=== PATIENT | male | born 1955 | race Caucasian/White ===

== ENCOUNTER 2016-08-09 17:00 | Inpatient (IN) | payer MEDICAID ==
[~2016-08-09] VITALS: Ht 180.3 cm; Wt 79.1 kg
--- NOTE | ~2016-08-09 | OR ---
PATIENT'S NAME: ALBERTO LEVI [facility] AGE: 61 Y [address] ROOM: [address] [address] LOCATION: [facility] [place] ADMIT DATE: 08/09/2016 OR/Procedure Report DISCHARGE DATE: FAMILY PHYSICIAN: JAMES LAI PA-C ATTENDING PHYSICIAN: Reilly Ayers SURGEON: Reilly Ayers MD PATROL INSPECTOR: DATE OF PROCEDURE: 08/10/2016 PREOPERATIVE DIAGNOSIS: Pathologic nondisplaced intertrochanteric fracture, left hip. POSTOPERATIVE DIAGNOSIS: Pathologic nondisplaced intertrochanteric fracture, left hip. ANESTHESIA: General ET tube. INDICATIONS: This is a 61-year-old male with a stage IV metastatic prostatic cancer who was walking his dog yesterday and then the dog ran in front of him and tangled him up in the dog leash and he fell, sustaining a nondisplaced fracture of his left femur. The patient is from [place]. DESCRIPTION OF PROCEDURE: The patient was brought to the operating room when a satisfactory general anesthesia had been established, and then he was transferred to the fracture table. The left lower extremity was prepped and draped in an aseptic manner. The fracture was reduced with longitudinal traction and internal rotation. Position of the fracture fragments was checked with the C-arm and accepted. The incision was made at the tip of the greater trochanter and carried down through the subcutaneous fat. The fascia of the gluteus robert was incised in line with the skin incision and the tip of the greater trochanter palpated. A short guide pin was used to fenestrate the tip of the greater trochanter and it was over reamed with the 16-mm reamer. The long guide pin was pushed down and a 400 mm long nail was selected. The canal was sounded with a 13 mm reamer and there was reaming through the isthmus. The nail was impacted down the canal and the cannula for the helical blade, positioned. A second incision was made in the cannula for the helical blade was pushed down to the bone. The guide pin was placed and after several tries, it was positioned in the center of the head on the AP view and near the center of the head on the lateral view. This was accepted. The guide pin was measured and 95 mm long helical blade was selected. The lateral cortex was overreamed and then the guide pin was over reamed. The helical blade was impacted home. The set screw was tightened down. The proximal end of the nail and then backed off half a turn. The traction was released and the fracture compressed. The position of the implants was checked and accepted. The insertion device was removed. The wounds were PATIENT'S NAME: ALBERTO LEVI [facility] AGE: 61 Y [address] ROOM: [place] [address] LOCATION: [facility] [place] ADMIT DATE: 08/09/2016 OR/Procedure Report DISCHARGE DATE: FAMILY PHYSICIAN: JAMES LAI PA-C ATTENDING PHYSICIAN: Reilly Ayers irrigated copiously with saline and closed with interrupted #1 Vicryl for the fascia of the gluteus robert. Subcutaneous fat on both wounds was closed with running 2-0 Vicryl, the skin closed with skin ray. Dressings were applied. The patient was awakened and sent to the recovery area, having tolerated the procedure well. MD RICH IRVIN/williams /[id number] d: 08/10/16 1638 t: 08/21/16 1031, OPERATIVE SUMMARY
--- NOTE | ~2016-08-09 | HP ---
PATIENT'S NAME: ALBERTO LEVI [facility] AGE: 61 Y [address] ROOM: [address] [address] [place] [facility] [place]: 08/09/2016 History & Physical DISCHARGE DATE: FAMILY PHYSICIAN: PHYSICIAN, UNKNOWN ATTENDING PHYSICIAN: Reilly Ayers DATE OF SERVICE: CHIEF COMPLAINT/HISTORY OF PRESENT ILLNESS: This is a 61-year-old male who I believe lives in [place]. He was walking his dog, and the dog chain got around the patient's legs, and the patient fell. He was unable to get up and had pain in his left lower extremity. He was taken to [place] where radiographs showed nondisplaced fracture of his left femur. His main medical problem is stage IV prostate cancer with metastasis to the bones. He has already undergone chemotherapy. ALLERGIES: NO KNOWN ALLERGIES. MEDICATIONS: Ibuprofen 600 to 800 mg as needed for pain or fever. PAST SURGICAL HISTORY: He had some kind of right knee operation in the past. PAST MEDICAL HISTORY: Illnesses: He has the metastatic prostate cancer. REVIEW OF SYSTEMS: EYES, EARS, AND NOSE: The patient denies eyes, ears, or nose problems. HEART/LUNGS: He denies heart or lung problems. GI: He denies GI problems. : He denies problems, other than the prostate cancer. MUSCULOSKELETAL: He does admit to episodes of low back pain in the past and that was the presenting symptom for his prostate cancer. SOCIAL HISTORY: Habits: The patient smokes cigarettes a pack a day for 40 years. He consumes alcohol socially. He occasionally smokes marijuana. The patient has worked for the [employer]. FAMILY HISTORY: Diabetes in father. A brother of gastric cancer in the 50s. PATIENT'S NAME: ALBERTO LEVI [facility] AGE: 61 Y [address] ROOM: [address] [address] [place] [facility] [place]: 08/09/2016 History & Physical DISCHARGE DATE: FAMILY PHYSICIAN: PHYSICIAN, UNKNOWN ATTENDING PHYSICIAN: Reilly Ayers PHYSICAL EXAMINATION: GENERAL: He is a well-developed and well-nourished male who is alert and cooperative. VITAL SIGNS: Blood pressure 119/58, heart rate 80, respirations 16, and temperature 97.9. HEENT: Head normocephalic and atraumatic. Pupils round and reactive to light. HEART: Regular rate and rhythm. LUNGS: Clear. ABDOMEN: Soft and nontender. EXTREMITIES: He has pain on any motion of the left hip. Neurovascular status of the left foot is intact. RADIOGRAPHS: Nondisplaced intertrochanteric fracture of the left femur with metastatic sclerotic lesions throughout his pelvis and both ilium and both ischial tuberosities. IMPRESSION: 1. Nondisplaced intertrochanteric fracture with subtrochanteric extension, left hip. 2. Prostate cancer with metastasis to the bones. 3. History of tobacco abuse. PLAN: The patient will be taken to the operating room for ORIF of his left hip with long TFN. The procedure, its risks, benefits, and alternatives were discussed with the patient, who appears to understand and requests to proceed. MD RICH IRVIN/williams /[id number] D: [id number] T: 129 HISTORY & PHYSICAL
--- NOTE | ~2016-08-09 | HP ---
PATIENT'S NAME: ALBERTO LEVI [facility] AGE: 61 Y [address] ROOM: [place] [address] LOCATION: [facility] [place] ADMIT DATE: 08/09/2016 History & Physical DISCHARGE DATE: FAMILY PHYSICIAN: PHYSICIAN, UNKNOWN ATTENDING PHYSICIAN: Reilly Ayers DATE OF SERVICE: CHIEF COMPLAINT: Left hip pain, status post fall. HISTORY OF PRESENT ILLNESS: This is a 61-year-old male who says that he was at home playing with his dog and the dog was running around and the patient tripped and fell, hitting on his left hip when he fell on the ground. After that, he called his for help who helped him to sit on the chair. His pain on the left hip was getting worse and therefore, the patient was initially brought to [place] for evaluation. Over there, imaging tests revealed left hip fracture and the patient was transferred here for further care. At baseline, the patient is physically active. Denies any chest pain or shortness of breath, and does not have any prior cardiac or pulmonary problem. His only medical problem is prostate cancer with metastasis to the bones diagnosed in September 2015, already underwent chemotherapy. The patient's METS score is more than 4. REVIEW OF SYSTEMS: As mentioned in the history of present illness. All other systems were review and they were negative except those mentioned in the history of present illness. PAST MEDICAL HISTORY: Prostate cancer with metastasis to the bones, diagnosed in September 2015, status post chemotherapy and already finished chemotherapy. ALLERGIES: NO KNOWN DRUG ALLERGIES ACCORDING TO THE PATIENT. HOME MEDICATIONS: Ibuprofen 600-800 mg p.o. every 8 hours p.r.n. for pain or fever. SOCIAL HISTORY: The patient is an active cigarette smoker about 1 pack per day for the last 40 years. The patient is a social alcohol drinker. He denies any alcohol withdrawal or any alcohol abuse. The patient occasionally smokes marijuana on PATIENT'S NAME: ALBERTO LEVI [facility] AGE: 61 Y [address] ROOM: [place] [address] LOCATION: [facility] [place] ADMIT DATE: 08/09/2016 History & Physical DISCHARGE DATE: FAMILY PHYSICIAN: PHYSICIAN, UNKNOWN ATTENDING PHYSICIAN: Reilly Ayers and off for several years. The patient denies any other illegal drugs. FAMILY HISTORY: Father from diabetes complications at advanced age. Mother from old age, but he could not remember which cause. He has a brother, who from gastric cancer in his 50s. No known premature cardiac history in the family. PAST SURGICAL HISTORY: Status post right knee surgery in the past. PHYSICAL EXAMINATION: VITAL SIGNS: Temperature 98, heart rate 87, respirations 18, blood pressure 119/78, saturation 96% on room air, pain 0/10. GENERAL APPEARANCE: Alert and oriented x3, in no acute distress. HEENT: Pupils are equally round and reactive to light. Extraocular muscles are intact. Anicteric sclerae. Nasal turbinates are normal bilaterally. Moist oral mucosa. NECK: No JVD. CARDIOVASCULAR: Regular rate and rhythm. Normal S1, S2. No murmur, no rubs, no gallops. RESPIRATORY: Clear. Chest wall nontender to palpation. ABDOMEN: Soft, nontender, nondistended, normal bowel sounds. No hepatosplenomegaly. Bowel sounds are present. EXTREMITIES: No edema in the upper or lower extremity. Dorsalis pedis pulse and the posterior tibialis pulse is present +2 bilaterally. NEUROLOGICAL: Left lower extremity is not examined due to the fracture of the left hip. Otherwise, unremarkable. SKIN: No ulcer, no rash, no cyanosis. LABORATORY DATA: Troponin less than 0.04. ProBNP 196. CPK 108, white blood cells 11.2, hemoglobin 12.9, hematocrit 37.5, MCV 91, platelets 274, glucose 98, BUN 9, creatinine 0.8. Sodium 138, potassium 4.0, chloride 105, CO2 24, calcium 8.7, total protein 7.3, albumin 3.7, AST 18, ALT 19, alkaline phosphatase 74, and total bilirubin 0.7, direct bilirubin 0.1, magnesium 2.4. GFR more than 60. Anion gap 13. INR 0.98, PTT 25. Urinalysis is negative for UTI. CK-MB less than 0.5. Pre-albumin 29. IMAGING STUDY: Chest x-ray on admission, the official reading is pending, based on my review are unremarkable. EKG on admission shows sinus rhythm, heart rate of 76, no acute ischemic changes. GA interval 179 milliseconds, QRS 100 milliseconds, QTc 414 PATIENT'S NAME: ALBERTO LEVI [facility] AGE: 61 Y [address] ROOM: [address] [address] LOCATION: [facility] [place] ADMIT DATE: 08/09/2016 History & Physical DISCHARGE DATE: FAMILY PHYSICIAN: PHYSICIAN, UNKNOWN ATTENDING PHYSICIAN: Reilly Ayers. CT of the pelvis from the outside facility shows acute intertrochanteric fracture of the left femur extending to the proximal femoral shaft, not significantly displaced. There are extensive sclerotic lesions throughout the bones consistent with a widespread metastatic disease. ASSESSMENT AND PLAN: 1. Regarding his left femur intertrochanteric fracture extending to the proximal femoral shaft, status post fall: Defer to Orthopedic Surgery team for surgery. 2. Regarding his preoperative medical evaluation for noncardiac surgery: Orthopedic surgery is considered as intermediate risk surgery. This patient has METS score more than 4 and he does not have any active contraindication to prevent him from undergoing orthopedic surgery and no further investigation or test is necessary at the moment before the Orthopedic Surgery. Per guideline, the patient does not have any active contraindication at the moment from the cardiac standpoint. The patient will be n.p.o. after midnight and we will be getting IV fluids for hydration. Pain control with IV morphine p.r.n. and also p.o. [place] p.r.n. Given that the patient has long history of cigarette smoking, his lungs are currently clear. His oxygen saturation is normal on room air. However, given that he is a chronic cigarette smoker, I am going to give him 1 dose of DuoNeb in the morning prior to surgery. Further plan depends on clinical course. 3. Regarding his metastatic prostate cancer to the bones, status post chemotherapy: The patient requested to have the PSA checked again. Therefore, currently is pending, but other than that, the patient will follow up as outpatient with his primary oncologist in the future for further care. 4. Regarding his deep vein thrombosis prophylaxis: Per Orthopedic Surgery. 5. Code status: He is a full code. Time spent in care on the day of consultation 35 minutes including chart review, interviewing the patient, examining the patient, addressing all the questions and concerns the patient had, and going over the plan of care with the patient. Half of the total time spent was in interview and examination and another half was counseling by addressing patient's questions and going over the plan of care with the patient. Further plan depends on clinical course. YAMILETH WOMACK MD PATIENT'S NAME: ALBERTO LEVI [facility] AGE: 61 Y [address] ROOM: [place] [address] LOCATION: [facility] [place] ADMIT DATE: 08/09/2016 History & Physical DISCHARGE DATE: FAMILY PHYSICIAN: PHYSICIAN, UNKNOWN ATTENDING PHYSICIAN: Reilly Ayers/williams /[id number] D: 720 T: 314 HISTORY & PHYSICAL
--- NOTE | ~2016-08-09 | DS ---
PATIENT'S NAME: ALBERTO KWON [facility] AGE: 61 Y [address] ROOM: [address] [address] LOCATION: [facility] [place] ADMIT DATE: 08/09/2016 Discharge Summary DISCHARGE DATE: 08/12/2016 FAMILY PHYSICIAN: Lorna Millard PA-C ATTENDING PHYSICIAN: Reilly Ayers HISTORY OF PRESENT ILLNESS: Mr. Kwon is a 61-year-old male, who presented with a nondisplaced fracture of his left femur as a result of a fall while walking his dog. The patient was admitted for definitive care of his fracture, comorbidities of prostate cancer. His x-rays confirmed an intertrochanteric fracture of the left hip. Once preoperative risk evaluation was performed by hospitalist, the patient was taken to the operating room and a long TFN was placed. Postoperatively, he was made weightbearing as tolerated. Postoperative 1, the patient was afebrile. Neurovascular was intact in the operative leg and hemoglobin was 10.8. Dilaudid was used for his pain control. Postop day 2, awake, alert, moderate pain, afebrile. Dressings clean, dry, and intact. Postop 3, hemoglobin 10.5 and arrangements were made for the patient to be discharged. Arrangements were made for the patient to be seen in [place] for followup. Continued on all his prehospitalization medications with the following additions: 1. Lovenox 40 subcu daily with a stop date of 08/24/2016 for DVT prophylaxis. 2. Merigold 5/325 was ordered for pain control, dispensed 40. 3. Dilaudid 4 mg, dispensed 20. ARIAS TURNER FOR MD KATHARINA IRVIN/williams /[id number] d: 08/22/16 0201 t: 08/28/16 0944, DISCHARGE SUMMARY
[~2016-08-09 17:00] MED LIST: COLACE100 MG PO; MILK OF MA400 MG/5 M PO; MIRALAX17 GM PO; NICODERM/HABITR21 MG TRANS; PERCOCET 5-3251 EACH PO; SENNA8.6 MG PO
[2016-08-09] MEDS ORDERED: ADVIL200 MG PO (19:51)
--- NOTE | 2016-08-09 21:09 | NUR ---
61 Y/O MALE ADMITTED FOR LT HIP FRACTURE. PT HAD ORIGINALLY HAD PROSTATE CANCER WITH METS TO THE BONES. PT HAD CHEMO FROM OCT-Jan. NKMA PT IS ALERT & ORIENTED X3. 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 LOW BACK PAIN X 20 YRS, CELLULITIS BOTH LEGS & ARMS OVER 20 YRS AGO, DIFF STARTING URINE STREAM, MAINTAINING STREAM AND EMPTYING BLADDER. NOCTURIA. PT SMOKES 1PPD X PAST 45 YRS, ALSO ADMITS TO SMOKING MARIJUANA DAILY TO HELP WITH THE PAIN R/T BONE METS, STATES HE DOES NOT TAKE THE PRESCRIBED PAIN MEDS THEY COST TOO MUCH AND CAUSE HIM TERRIBLE CONSTIPATION. REPORT GIVEN TO PT PRIMARY CAREE NURSE HAL Banks RN ALSO I SPOKE TO JEEVAN IN CARE MANAGEMENT TO SEE ABOUT ASSISTANCE FOR PT & FAMILY WITH HIS CURRENT MEDICAL & FINANCIAL SITUATION. SHE WILL BE IN TOMORROW TO TALK WITH THE PT.
[2016-08-09 21:49] LABS: BASOPHIL # 0.1 K/uL (0.0-0.2); BASOPHIL % 0.6 %; EOSINOPHIL # 0.1 K/uL (0.0-0.5); EOSINOPHIL % 1.2 %; HEMATOCRIT 37.5 % (37.0-53.0); HEMOGLOBIN 12.9 g/dL (12.0-17.0); IMMATURE GRANULOCYTE # 0.1 K/uL (0.0-0.3); IMMATURE GRANULOCYTE % 0.5 %; LYMPHOCYTE # 1.6 K/uL (0.8-4.0); LYMPHOCYTE % 13.9 %; MCH 31.3 pg (27.0-34.0); MCHC 34.4 gm/dL (32.0-36.5); MONOCYTE # 0.8 K/uL (0.0-1.0); MONOCYTE % 7.2 %; MPV 8.6 fl (9.4-12.4); NEUTROPHIL # (ANC) 8.5 K/uL (1.4-9.0); NEUTROPHIL % 76.6 %; NRBC % 0 /100WBC (0-0.00); PLATELET COUNT 274 K/uL (150-450); RBC 4.12 M/uL (4.00-6.00); RDW-CV 15.9 % (11.9-14.6); WBC 11.2 K/uL (4.0-11.0)
[2016-08-09 21:57] LABS: INR - (THERAPEUTIC) 0.98 (0.92-1.07); PROTIME 10.3 SECONDS (9.8-11.4); PTT 25 SECONDS (25-32)
[2016-08-09 22:07] LABS: ALBUMIN 3.7 gm/dL (3.5-5.0); ALK PHOS 74 IU/L (33-138); ALT 19 IU/L (12-78); AST 18 IU/L (10-40); BLOOD UREA NITROGEN 9 mg/dL (6-24); CALCIUM 8.7 mg/dL (8.5-10.5); CHLORIDE 105 mMol/L (96-110); CO2 24 mMol/L (22-32); CPK 108 IU/L (35-332); CREATININE 0.8 mg/dL (0.6-1.3); ESTIMATED GFR (MDRD EQUATION) > 60; MAGNESIUM 2.4 mg/dL (1.8-2.6); SODIUM 138 mMol/L (135-145); TOTAL BILIRUBIN 0.7 mg/dL (0.0-1.5); TOTAL PROTEIN 7.3 g/dL (6.0-8.4)
[2016-08-10 04:52] LABS: BILIRUBIN URINE NEGATIVE (NEGATIVE); BLOOD URINE NEGATIVE /UL (NEGATIVE); COLOR URINE YELLOW (YELLOW); GLUCOSE URINE NEGATIVE (NEGATIVE); KETONE URINE NEGATIVE (NEGATIVE); LEUKOCYTES URINE NEGATIVE /UL (NEGATIVE); NITRITE URINE NEGATIVE (NEGATIVE); PROTEIN URINE NEGATIVE (NEGATIVE); TURBIDITY URINE CLEAR (CLEAR); UROBILINOGEN URINE NORMAL (NORMAL)
--- NOTE | 2016-08-10 05:52 | NUR ---
Significant Event: PATIENT ADMITTED WITH LEFT HIP FRACTURE. HISTORY OF STAGE4 PROSTATE CANCER WITH METS TO THE BONE. PATIENT WILL HAVE SURGURY TODAY, LATE MORNING. PERMIT SIGNED. ON ROOM AIR. NPO SINCE MN. NO SKIN ISSUES. SMOKES MARIJUANA DAILY WELL A 6PK OF BEER DAILY. D5NS INFUSING AT 75ML/HR TO IV SITE IN RIGHT WRIST. CHRONIC COUGH. NON-PRODUCTIVE. 1PPD SMOKER. Follow up:
--- NOTE | 2016-08-10 16:02 | NUR ---
Significant Event: Returned from OR @ 1230. Will have 3rd hourly vs due @ 1815. O24L NC. Needs enc to use IS. CSM WNL. Had general anesthesia. Dressing c/d/i L) hip. Refuses ice bag. Taking fluids without c/o n/v. Taking IV morphine 2 mg for pain control. Last norco @ 1207. Has voided x 1 postop. Follow up:
[2016-08-11 05:28] LABS: HEMOGLOBIN 10.8 g/dL (12.0-17.0)
[2016-08-11 05:38] LABS: ALBUMIN 3.1 gm/dL (3.5-5.0); ANION GAP 10.7 (10.0-19.0); BLOOD UREA NITROGEN 6 mg/dL (6-24); CALCIUM 8.3 mg/dL (8.5-10.5); CHLORIDE 102 mMol/L (96-110); CO2 26 mMol/L (22-32); CREATININE 0.7 mg/dL (0.6-1.3); ESTIMATED GFR (MDRD EQUATION) > 60; PHOSPHORUS 3.6 mg/dL (2.5-4.9); POTASSIUM 3.7 mMol/L (3.7-5.1); SODIUM 135 mMol/L (135-145)
--- NOTE | 2016-08-11 07:40 | NUR ---
Significant Event: Pt alert and oriented. Dangeled at bedside late evening, tolerated fairly well. Morphine given x 5 and [place] x 3 with the last doses around 0545. Left hip dressing cl/dry/intact. Pt refuses ice to hip. CSM WNL. Saline locked IV at 0530. Follow up:
--- NOTE | 2016-08-11 17:51 | NUR ---
Significant Event: Ambulates with one assist and walker. Dressing C/D/I. Refuses ice. Voids per urinal. Dilaudid 4mg last at 1415, Tylenol 1000mg last at 1724. CSM WNL. Pleasant and cooperative with cares. Follow up:
--- NOTE | 2016-08-12 05:16 | NUR ---
Significant Event: Pt alert and oriented. Gave dilauded PO at HS and pt stated that it made his stomach cramp and refused it the rest of the night. Gave morphine x 2 to get through the night, will get tylenol this morning . Needs encouraged to eat and drink. Up to BR and ambulated in room this evening and tolerated well. Left hip dressing c/d/i. Refuses ice to hip, CSM WNL. Follow up:
[2016-08-12 06:12] LABS: HEMATOCRIT 30.4 % (37.0-53.0); HEMOGLOBIN 10.5 g/dL (12.0-17.0)
--- NOTE | 2016-08-12 12:38 | NUR ---
SPOKE TO PATIENT REGARDING CM AND OUR ROLE. PATIENT LIVES IN OWN HOME WITH SPOUSE AND OTHER FAMILY MEMBERS. PATIENT IS PLANNING ON RETURNING HOME ONCE HE IS READY FOR DISCHARGE. HE REPORTS THAT HE HAS A FRONT WHEELED WALKER AT HOME AND HE HAS STAIRS GOING INTO HIS HOUSE. HE TELLS ME THAT HE HAS BEEN PRACTICING WITH THERAPY DOING THE STAIRS AND HE FEELS THAT HE CAN MANAGE THEM AT HOME. HE IS HOPING TO BE DISCHARGE HOME LATER TODAY.
--- NOTE | 2016-08-12 14:53 | NUR ---
Significant Event: Pt c/o intermittent left hip pain. Routine Tylenol, 1 norco and 1 dose of dilaudid given with some relief. Dressing changed after shower. Up with standby assist. Possible dc to home later today. Tele on, no calls. Follow up:
[2016-08-12] MEDS ORDERED: PAIN RELIEF EX500 MG PO (17:14)
[2016-08-12] MEDS ORDERED: COLACE100 MG PO (17:15)
[2016-08-12] MEDS ORDERED: LOVENOX 4040 MG/0.4 SUB-Q (17:17)
[2016-08-12] MEDS ORDERED: PEPCID20 MG PO (17:17)
[2016-08-12] MEDS ORDERED: NICODERM CQ1 EAC1 TRANS (17:18)
[2016-08-12] MEDS ORDERED: NORCO 5-325 TA1 EACH PO (17:21)
[2016-08-12] MEDS ORDERED: DILAUDID 4MG4 MG PO (17:22)
--- NOTE | 2016-08-12 17:38 | NUR ---
D: ORDERS RECEIVED FOR THE PATIENT TO BE DISCHARGED TO HOME TODAY. I: DISMISSAL INSTRUCTIONS WERE PREPARED AND REVIEWED WITH THE PATIENT AND VIRTUALLY. THE FOLLOWING INFORMATION WAS DISCUSSED INCLUDING JADIEL TEACHING SHEETS PROVIDED: HIP SAFETY-DRESSING, HIP FRACTURE SURGERY RECOVERY AT HOME, TYELNOL, COLACE, LOVENOX, NICOTINE PATCH, NORCO, PEPCID, DILAUDID, PREVENTING DVT AND DISCHARGE INSTRUCTIONS FOR HIP FRACTURE SURGERY. REVIEWED PRESCRIPTIONS, SIDE EFFECTS OF NEW MEDICATION AND FOLLOW UP APPOINTMENT-THE PATIENT WILL NEED TO CALL THE [facility] TOMORROW TO SCHEDULE. R: THE PATIENT AND HIS BOTH VERBALIZED UNDERSTANDING OF THE DISMISSAL EDUCATION AT THE TIME OF TEACHING WITH NO FURTHER QUESTIONS. P: THE ABOVE INFORMATION WAS SHARED WITH THE PRIMARY NURE AND THE CHARGE NURSE THAT THE PATIENT'S DISMISSAL EDUCATION WAS COMPLETED. THE PATIENT IS READY FOR DISCHARGE TO THE FRONT DOOR VIA WHEEL CHAIR BY NURSING STAFF.
== END 2016-08-12 18:00 | disposition disaster alternative care site (69) | DRG 481 ==
LOC: GMSU 19:29
PROVIDERS: Internal Medicine; Student in an Organized Health Care Education/Training Program; ADMIT Orthopaedic Surgery
PROC: 0QS706Z Reposition Left Upper Femur with Intramedullary Internal Fixation Device, Open Approach (ICD-10-PCS; principal; 2016-08-10)
DX: M84.452A Pathological fracture, left femur, initial encounter for fracture (principal); C79.51 Secondary malignant neoplasm of bone; C61 Malignant neoplasm of prostate; J98.11 Atelectasis; F17.210 Nicotine dependence, cigarettes, uncomplicated; R09.02 Hypoxemia; Z92.21 Personal history of antineoplastic chemotherapy; W18.30XA Fall on same level, unspecified, initial encounter
CPT/HCPCS: C1713; J0690; J1650; J2270; J3010; J7030; J7042; J7120